=== PATIENT | male | born 1950 | race Caucasian/White ===

== ENCOUNTER → 2017-01-27 | Outpatient (CLI) | payer MEDICARE ==
[~2017-01-27] MED LIST: AZITHROMYCIN250 MG PO; B12 INJ.,1000 MCG/M IM; CIPRO 500MG TA500 MG PO; CLOPIDOGREL75 M2 PO; CRESTOR5 MG; FISH OIL1000 MG PO; LORTAB 5/500 501 TAB PO; LOSARTAN POTAS100 MG; METFORMIN 500M500 M1 PO; MUCINEX600 MG PO; MULTI VITAMINS1 TAB PO; ONGLYZA5 MG; TYLENOL W/CODEI1 TAB PO
[2017-01-27 14:34] LABS: BUN 11 mg/dL (7-18)
[2017-01-27 15:42] LABS: GFR (ESTIMATED) 75 ML/MIN (>60)
== END ==
LOC: CARL-LAB 07:45
PROVIDERS: Internal Medicine Adolescent Medicine
DX: E11.9 Type 2 diabetes mellitus without complications (principal)